=== PATIENT | female | born 1960 | race Caucasian/White ===

== ENCOUNTER 2018-09-08 10:57 | Emergency (ER) | payer MEDICAID ==
[2018-09-08] MEDS ORDERED: ONDANSETRON HCL INJ/PF 4 MG/2 ML SDV IV ONE ×2 (11:08→13:22)
--- NOTE | 2018-09-08 11:08 | ER Document Report ---
ED Medical Screen (RME) - General Chief Complaint: Nausea/Vomiting/Diarrhea Stated Complaint: VOMITING Time Seen by Provider: 09/08/18 11:03 Mode of Arrival: Ambulatory Information source: Patient Notes: Patient presents to the emergency department with complaints of abdominal cramping and vomiting. Patient reports her sister came over last night with a bottle of whiskey. She reports they drank the whiskey and she has been vomiting nonstop since last night. Patient is actively vomiting and gagging in triage. I have greeted and performed a rapid initial assessment of this patient. A comprehensive ED assessment and evaluation of the patient, analysis of test results and completion of the medical decision making process will be conducted by additional ED providers. TRAVEL OUTSIDE OF THE [place] IN LAST 30 DAYS: No - Related Data Allergies/Adverse Reactions: No Known Allergies Allergy (Verified 09/08/18 10:59) Past Medical History - Past Medical History Cardiac Medical History: Reports: Hx Hypertension Pulmonary Medical History: Reports: Hx Asthma, Hx Bronchitis - Asthmatic bronchitis, Hx COPD, Hx Pneumonia - 2008 hospitalized Renal/ Medical History: Reports: Hx Ovarian Cysts GI Medical History: Reports: Hx Gastroesophageal Reflux Disease Musculoskeltal Medical History: Reports Hx Musculoskeletal Trauma Traumatic Medical History: Reports: Hx Fractures - cheek bone and coccyx Past Surgical History: Reports: Hx Appendectomy, Hx Orthopedic Surgery - cheek bone reconstruction - Immunizations Immunizations up to date: Yes Hx Diphtheria, Pertussis, Tetanus Vaccination: Yes Physical Exam - Vital signs Vitals: Pulse Resp BP Pulse Ox 56 L 21 H 172/94 H 100 09/08/18 11:05 09/08/18 11:05 09/08/18 11:05 09/08/18 11:05 Course - Vital Signs Vital signs: Temp Pulse Resp BP Pulse Ox 56 L 21 H 172/94 H 100 09/08/18 11:05 09/08/18 11:05 09/08/18 11:05 09/08/18 11:05
[2018-09-08] MEDS ORDERED: NORMAL SALINE 1000 ML 1,000 ML IV ONE ×2 (11:09→13:22)
[2018-09-08 11:39] LABS: ABSOLUTE BASOPHILS # (AUTO) 0.1 10^3/uL (0.0-0.2); ABSOLUTE LYMPHOCYTES (AUTO) 1.9 10^3/uL (0.5-4.7); ABSOLUTE MONOCYTES (AUTO) 0.5 10^3/uL (0.1-1.4); ABSOLUTE NEUT (AUTO) 14.5 10^3/uL (1.7-8.2); BASOPHILS % (AUTO) 0.5 % (0-2); HEMATOCRIT 39.1 % (36.0-47.0); HEMOGLOBIN 13.4 g/dL (12.0-15.5); LYMPHOCYTES % (AUTO) 11.1 % (13-45); MEAN CORPUSCULAR HEMOGLOBIN 29.5 pg (27.0-33.4); MEAN CORPUSCULAR HGB CONC 34.2 g/dL (32.0-36.0); MEAN CORPUSCULAR VOLUME 86 fl (80-97); MONOCYTES % (AUTO) 2.8 % (3-13); PLATELET COUNT 351 10^3/uL (150-450); RED BLOOD COUNT 4.54 10^6/uL (3.72-5.28); RED CELL DISTRIBUTION WIDTH 13.3 % (11.5-14.0); SEGMENTED NEUTROPHILS % (AUTO) 85.6 % (42-78); TOTAL CELLS COUNTED % (AUTO) 100 %; WHITE BLOOD COUNT 16.9 10^3/uL (4.0-10.5)
[2018-09-08 12:17] LABS: ALANINE AMINOTRANSFERASE 30 U/L (9-52); ALBUMIN 4.6 g/dL (3.5-5.0); ALKALINE PHOSPHATASE 73 U/L (38-126); ANION GAP 12 (5-19); ASPARTATE AMINO TRANSFERASE 30 U/L (14-36); BILIRUBIN,DIRECT 0.2 mg/dL (0.0-0.4); BILIRUBIN,TOTAL 0.4 mg/dL (0.2-1.3); BLOOD UREA NITROGEN 18 mg/dL (7-20); CALCIUM 9.9 mg/dL (8.4-10.2); CARBON DIOXIDE 25 mmol/L (22-30); CHLORIDE 106 mmol/L (98-107); GLUCOSE 153 mg/dL (75-110); LIPASE 299.5 U/L (23-300); POTASSIUM 4.4 mmol/L (3.6-5.0); SODIUM 143.1 mmol/L (137-145); TOTAL PROTEIN 7.5 g/dL (6.3-8.2)
--- NOTE | 2018-09-08 13:23 | ER Document Report ---
ED General - General Chief Complaint: Nausea/Vomiting/Diarrhea Stated Complaint: VOMITING Time Seen by Provider: 09/08/18 11:03 Mode of Arrival: Ambulatory Cannot obtain history due to: Uncooperative Notes: 57 female in mild distress presents to the emergency department with complaints of abdominal cramping and vomiting. Patient reports her sister came over last night with a bottle of whiskey. She reports they drank the whiskey and she has been vomiting nonstop since last night. Patient is actively vomiting and gagging during the interview. She is unclear how much she drank. She is n auseated and said the triage did not help she says a "feel terrible", she complains of lightheadedness and abdominal cramping. She denies any dizziness, lightheadedness, headache, shortness of breath or chest pain TRAVEL OUTSIDE OF THE [place] IN LAST 30 DAYS: No - Related Data Allergies/Adverse Reactions: No Known Allergies Allergy (Verified 09/08/18 10:59) Past Medical History - General Information source: Patient - Social History Smoking Status: Current Some Day Smoker Drug Abuse: Marijuana Family History: Arthritis, CAD, Hyperlipidemia, Hypertension, Malignancy, Other - ASTHMA. denies: CVA, DM Patient has suicidal ideation: No Patient has homicidal ideation: No - Past Medical History Cardiac Medical History: Reports: Hx Hypertension Pulmonary Medical History: Reports: Hx Asthma, Hx Bronchitis - Asthmatic bronchitis, Hx COPD, Hx Pneumonia - 2009 hospitalized Renal/ Medical History: Reports: Hx Ovarian Cysts. Denies: Hx Peritoneal Dialysis GI Medical History: Reports: Hx Gastroesophageal Reflux Disease Musculoskeletal Medical History: Reports Hx Musculoskeletal Trauma Traumatic Medical History: Reports: Hx Fractures - cheek bone and coccyx Past Surgical History: Reports: Hx Appendectomy, Hx Orthopedic Surgery - cheek bone reconstruction - Immunizations Immunizations up to date: Yes Hx Diphtheria, Pertussis, Tetanus Vaccination: Yes Review of Systems - Review of Systems Constitutional: See HPI EENT: See HPI Cardiovascular: See HPI Respiratory: See HPI Gastrointestinal: See HPI Genitourinary: See HPI Female Genitourinary: No symptoms reported Musculoskeletal: No symptoms reported Skin: No symptoms reported Hematologic/Lymphatic: No symptoms reported Neurological/Psychological: No symptoms reported Physical Exam - Vital signs Vitals: Pulse Resp BP Pulse Ox 56 L 21 H 172/94 H 100 09/08/18 11:05 09/08/18 11:05 09/08/18 11:05 09/08/18 11:05 - Notes Notes: PHYSICAL EXAMINATION: Reviewed vital signs and charting by RN GENERAL: Alert, interacts well. Mild distress. HEAD: Normocephalic, atraumatic. EYES: Pupils equal and round. Extraocular movements intact. ENT: Oral mucosa moist, tongue midline. NECK: Full range of motion. Trachea midline. LUNGS: Clear to auscultation bilaterally, no wheezes, rales, or rhonchi. No respiratory distress. HEART: Regular rate and rhythm. No murmur ABDOMEN: soft, non-tender. Non-distended. Bowel sounds present. no McBurney's point tenderness, no Timmons sign. EXTREMITIES: Moves all 4 extremities spontaneously. No edema, No cyanosis. Normal distal neurovascular exam BACK: No CVAT NEUROLOGIC: Oriented and appropriate. Normal speech. PSYCH: Normal affect, normal mood. SKIN: Warm, dry, normal turgor. No rashes or lesions noted. Course - Re-evaluation Re-evalutation: 09/08/18 13:22 In mild distress, actively vomiting. We will give her another antiemetic. We will also give her another bag of normal saline. 09/08/18 14:34 Patient received second liter of normal saline and Zofran 4 mg IV approximately 20 minutes ago. She says she is "waiting for the antinausea medication to kick in". I will give her promethazine 50 mg IM 1 time as the Zofran does not appear to be working. Patient's labs all within normal ranges, she has a leukocytosis most likely secondary, is afebrile. At this time once patient is feeling better and her vomiting subsides she will be safe to go home. 09/08/18 15:36 Patient received promethazine and endorses feeling better. She says that her stomach is hurting her but it is from retching she states. At this time discharge home. I will send her with an ER dose pack of Zofran and write her prescription for Phenergan as the Phenergan seems to work better for her. - Vital Signs Vital signs: Temp Pulse Resp BP Pulse Ox 56 L 21 H 172/94 H 100 09/08/18 11:05 09/08/18 11:05 09/08/18 11:05 04/09/19 11:05 - Laboratory Result Diagrams: 09/08/18 11:22 09/08/18 11:22 Laboratory results interpreted by me: 09/08/18 09/08/18 11:22 11:22 WBC 16.9 H Seg Neutrophils % 85.6 H Lymphocytes % 11.1 L Monocytes % 2.8 L Absolute Neutrophils 14.5 H Glucose 153 H Discharge - Discharge Clinical Impression: Nausea & vomiting Qualifiers: Vomiting type: unspecified Vomiting Intractability: intractable Qualified Code(s): R11.2 - Nausea with vomiting, unspecified Condition: Good Disposition: HOME, SELF-CARE Additional Instructions: You have been seen in the Emergency Department (ED) today for nausea and vomiting. Your work up today was reassuring and you had no lab abnormalities related to your symptoms. You have been prescribed Zofran and Phenergan; please use as prescribed as needed for your nausea. Follow up with your doctor as soon as possible regarding today's emergent visit and your symptoms of nausea. Return to the Emergency Department (ED) if you develop abdominal pain, bloody vomiting, bloody diarrhea, if you are unable to tolerate fluids due to vomiting, or if you develop other symptoms that concern you.
[2018-09-08] MEDS ORDERED: PROMETHAZINE HCL INJ 50 MG/1 ML VIAL IM ONE (14:33)
[2018-09-08] MEDS ORDERED: ONDANSETRON ODT 4 MG TAB (6 TAB/ER DISP) PO PRN (16:13)
[2018-09-08 16:21] VITALS: BP 158/85
== END 2018-09-08 16:20 | disposition home or self-care (01) ==
LOC: ER 10:57
DX: R11.2 Nausea with vomiting, unspecified (principal); R19.7 Diarrhea, unspecified; F17.200 Nicotine dependence, unspecified, uncomplicated; I10 Essential (primary) hypertension
CPT/HCPCS: 96376; 99284; 96372; 96361; 96374; 36415; 83690; 85025; 80053; J2550; J2405; J7030

== ENCOUNTER 2019-02-11 08:08 | Emergency (ER) | payer MEDICAID ==
[2019-02-11 09:51] LABS: ABSOLUTE BASOPHILS # (AUTO) 0.1 10^3/uL (0.0-0.2); ABSOLUTE EOSINOPHILS # (AUTO) 0.1 10^3/uL (0.0-0.6); ABSOLUTE LYMPHOCYTES (AUTO) 3.1 10^3/uL (0.5-4.7); ABSOLUTE MONOCYTES (AUTO) 0.7 10^3/uL (0.1-1.4); ABSOLUTE NEUT (AUTO) 5.3 10^3/uL (1.7-8.2); EOSINOPHILS % (AUTO) 1.2 % (0-6); HEMATOCRIT 36.5 % (36.0-47.0); HEMOGLOBIN 12.4 g/dL (12.0-15.5); LYMPHOCYTES % (AUTO) 33.3 % (13-45); MEAN CORPUSCULAR HEMOGLOBIN 29.1 pg (27.0-33.4); MEAN CORPUSCULAR VOLUME 85 fl (80-97); MONOCYTES % (AUTO) 7.4 % (3-13); PLATELET COUNT 269 10^3/uL (150-450); RED BLOOD COUNT 4.27 10^6/uL (3.72-5.28); RED CELL DISTRIBUTION WIDTH 13.3 % (11.5-14.0); SEGMENTED NEUTROPHILS % (AUTO) 57.1 % (42-78); TOTAL CELLS COUNTED % (AUTO) 100 %; WHITE BLOOD COUNT 9.3 10^3/uL (4.0-10.5)
[2019-02-11 09:53] LABS: APPEARANCE,URINE CLEAR; BILIRUBIN,URINE NEGATIVE (NEGATIVE); COLOR,URINE YELLOW; GLUCOSE, URINE NEGATIVE (NEGATIVE); KETONES,URINE TRACE mg/dL (NEGATIVE); LEUKOCYTE ESTERASE,URINE TRACE (NEGATIVE); NITRITE,URINE NEGATIVE (NEGATIVE); PROTEIN,URINE NEGATIVE (NEGATIVE); URINE SPECIFIC GRAVITY 1.023; UROBILINOGEN,URINE NEGATIVE mg/dL (<2.0)
[2019-02-11 10:01] LABS: INTERNATIONAL RATION (INR) 0.91; PROTHROMBIN TIME 12.2 SEC (11.4-15.4)
[2019-02-11 10:06] LABS: ADD MANUAL MICROSCOPIC YES
[2019-02-11 10:07] LABS: ANION GAP 10 (5-19); BLOOD UREA NITROGEN 20 mg/dL (7-20); CALCIUM 9.5 mg/dL (8.4-10.2); CARBON DIOXIDE 28 mmol/L (22-30); CHLORIDE 105 mmol/L (98-107); POTASSIUM 3.7 mmol/L (3.6-5.0)
[2019-02-11 10:09] LABS: GLUCOSE 46 mg/dL (75-110)
[2019-02-11 10:34] LABS: BACTERIA,URINE 1+ /HPF; WBC,URINE 0-1 /HPF
--- NOTE | 2019-02-11 10:47 | ER Document Report ---
Entered by AYSE JARA SCRIBE 02/11/19 1007 Acting as scribe for:DIVYA LOPEZ MD ED Extremity Problem, Lower - General Chief Complaint: Leg Pain Stated Complaint: LEG PAIN Time Seen by Provider: 02/11/19 09:50 Primary Care Provider: MUSHTAQ RUDD FNP [Primary Care Provider] - Follow up as needed Notes: Patient is a 58-year-old female who presents to the emergency department today with complaints of "bruising" to her lower extremities which "all appeared within the last 12 hours". Patient also mentions an area on her right lower extremity where a mole was recently removed. Patient states it was biopsied and it was "all clear" however this area turned black overnight. Patient states she "has a fear of blood clots". Patient is on Plavix. TRAVEL OUTSIDE OF THE [place] IN LAST 30 DAYS: No - Related Data Allergies/Adverse Reactions: No Known Allergies Allergy (Verified 02/11/19 08:11) Past Medical History - General Information source: Patient - Social History Smoking Status: Former Smoker - quit around the 1999 Cigarette use (# per day): No Frequency of alcohol use: None Lives with: Family Family History: Arthritis, CAD, Hyperlipidemia, Hypertension, Malignancy, Other - ASTHMA - Past Medical History Cardiac Medical History: Reports: Hx Hypertension Pulmonary Medical History: Reports: Hx Asthma, Hx Bronchitis - Asthmatic bro nchitis, Hx COPD, Hx Pneumonia - 2008 hospitalized Renal/ Medical History: Reports: Hx Ovarian Cysts GI Medical History: Reports: Hx Gastroesophageal Reflux Disease Musculoskeletal Medical History: Reports Hx Musculoskeletal Trauma Traumatic Medical History: Reports: Hx Fractures - cheek bone and coccyx Past Surgical History: Reports: Hx Appendectomy, Hx Orthopedic Surgery - cheek bone reconstruction - Immunizations Immunizations up to date: Yes Hx Diphtheria, Pertussis, Tetanus Vaccination: Yes Review of Systems - Review of Systems Constitutional: No symptoms reported EENT: No symptoms reported Cardiovascular: No symptoms reported Respiratory: No symptoms reported Gastrointestinal: No symptoms reported Genitourinary: No symptoms reported Female Genitourinary: No symptoms reported Musculoskeletal: No symptoms reported Skin: No symptoms reported Hematologic/Lymphatic: See HPI, Easy bruising Neurological/Psychological: No symptoms reported -: Yes All other systems reviewed and negative Physical Exam - Vital signs Vitals: Temp Pulse Resp BP Pulse Ox 97.7 F 76 20 131/80 H 98 09/12/19 08:12 02/11/19 08:12 02/11/19 08:12 02/11/19 08:12 02/11/19 08:12 - Notes Notes: Physical Exam: General: Alert, appears well. HEENT: Normocephalic. Atraumatic. PERRL. Extraocular movements intact. Oropharynx clear. Neck: Supple. Non-tender. Respiratory: No respiratory distress. Clear and equal breath sounds bilaterally. Cardiovascular: Regular rate and rhythm. Abdominal: Normal Inspection. Non-tender. No distension. Normal Bowel Sounds. Back: No gross abnormalities. Extremities: Moves all four extremities. Upper extremities: Normal inspection. Normal ROM. Lower extremities: Normal inspection. No edema. Normal ROM. No calf swelling. Calves are symmetric and soft. Neurological: Normal cognition. AAOx4. Normal speech. Psychological: Normal affect. Normal Mood. Skin: Scattered bruises ranging from 1-5 mm. The larger bruises a firm nodule centrally consistent with blood clotting, these areas are tender with palpation. Right medial leg has a 1cm area that is dark brown to black in color with scal ing. There is a surrounding halo with red streaking from the area. Patient reports this is the area where she had a mole remove. Course - Vital Signs Vital signs: Temp Pulse Resp BP Pulse Ox 97.7 F 76 20 131/80 H 98 02/11/19 08:12 02/11/19 08:12 02/11/19 08:12 02/11/19 08:12 02/11/19 08:12 - Laboratory Result Diagrams: 02/11/19 09:27 02/11/19 09:27 Laboratory results interpreted by me: 02/11/19 02/11/19 09:27 09:27 Glucose 46 L Urine Ketones TRACE H Urine Blood SMALL H Ur Leukocyte Esterase TRACE H Discharge - Discharge Clinical Impression: Infected lesion of skin, Hypoglycemia associated with type 2 diabetes mellitus Superficial bruising of lower leg Qualifiers: Encounter type: initial encounter Laterality: unspecified laterality Qualified Code(s): S80.10XA - Contusion of unspecified lower leg, initial encounter Condition: Stable Disposition: HOME, SELF-CARE Additional Instructions: The bruising you noticed on your legs is probably related to minor trauma and being on Plavix. The lesion on the right leg where your biopsy was done previously, looks like it may be becoming infected. I am concerned about the appearance of this area and think it needs further evaluation and possibly repeat biopsy. Your blood sugar is quite low today, you need to be sure you do not miss any meals. Take the medication as prescribed. Elevate your feet as much as possible. Be sure not to miss any meals. Follow-up with your primary care provider for referral to a state comptroller, a general surgeon, or a plastic surgeon to evaluate the biopsy site on your leg. RETURN TO THE EMERGENCY ROOM IF ANY NEW OR WORSENING SYMPTOMS. Prescriptions: Cephalexin Monohydrate [Keflex 500 mg Capsule] 500 mg PO QID #28 capsule Referrals: MUSHTAQ RUDD FNP [Primary Care Provider] - Follow up as needed Scribe Attestation: 02/11/19 10:53 I personally performed the services described in the documentation, reviewed and edited the documentation which was dictated to the scribe in my presence, and it accurately records my words and actions. I personally performed the services described in the documentation, reviewed and edited the documentation which was dictated to the scribe in my presence, and it accurately records my words and actions.
[2019-02-11] MEDS ORDERED: CEPHALEXIN 500 MG CAPSULE PO ONE (10:51)
[2019-02-11 11:51] VITALS: BP 140/92
== END 2019-02-11 11:52 | disposition home or self-care (01) ==
LOC: ER 08:08
DX: S80.10XA Contusion of unspecified lower leg, initial encounter (principal); E11.649 Type 2 diabetes mellitus with hypoglycemia without coma; L98.8 Other specified disorders of the skin and subcutaneous tissue; X58.XXXA Exposure to other specified factors, initial encounter; M79.605 Pain in left leg; M79.604 Pain in right leg; I10 Essential (primary) hypertension; Z79.01 Long term (current) use of anticoagulants
CPT/HCPCS: 36415; 80048; 81001; 82962; 84484; 85025; 85379; 85610

== ENCOUNTER 2019-11-14 19:08 | Emergency (ER) | payer MEDICAID ==
--- NOTE | 2019-11-14 19:53 | ER Document Report ---
ED Medical Screen (RME) - General Chief Complaint: Blurred Vision Stated Complaint: VISION CHANGES Time Seen by Provider: 11/14/19 19:50 Primary Care Provider: MUSHTAQ RUDD FNP [Primary Care Provider] - Follow up as needed Mode of Arrival: Medic Information source: Patient Notes: 58-year-old female presented to ED for blurred vision at 6 PM tonight. She has had previous strokes with her symptoms being confusion and blurred vision. She states she has had both of these today. Patient is alert oriented answering questions appropriately but she still does have some short-term memory. She does not have any palmar drift. She does not have any facial droop. I have greeted and performed a rapid initial assessment of this patient. A comprehensive ED assessment and evaluation of the patient, analysis of test results and completion of medical decision making process will be conducted by an additional ED providers. TRAVEL OUTSIDE OF THE [place] IN LAST 30 DAYS: No - Related Data Allergies/Adverse Reactions: No Known Allergies Allergy (Verified 02/11/19 08:11) Past Medical History - Past Medical History Cardiac Medical History: Reports: Hx Hypertension Pulmonary Medical History: Reports: Hx Asthma, Hx Bronchitis - Asthmatic bronchitis, Hx COPD, Hx Pneumonia - 2008 hospitalized Renal/ Medical History: Reports: Hx Ovarian Cysts. Denies: Hx Peritoneal Dialysis GI Medical History: Reports: Hx Gastroesophageal Reflux Disease Musculoskeltal Medical History: Reports Hx Musculoskeletal Trauma Traumatic Medical History: Reports: Hx Fractures - cheek bone and coccyx Past Surgical History: Reports: Hx Appendectomy, Hx Orthopedic Surgery - cheek bone reconstruction - Immunizations Immunizations up to date: Yes Hx Diphtheria, Pertussis, Tetanus Vaccination: Yes Physical Exam - Vital signs Vitals: Temp Pulse Resp BP Pulse Ox 98.6 F 64 16 146/89 H 96 11/14/19 19:35 11/14/19 19:35 11/14/19 19:35 11/14/19 19:35 11/14/19 19:35 Course - Vital Signs Vital signs: Temp Pulse Resp BP Pulse Ox 98.6 F 64 16 146/89 H 96 11/14/19 19:35 11/14/19 19:35 11/14/19 19:35 11/14/19 19:35 11/14/19 19:35 Doctor's Discharge - Discharge Referrals: TOBIN,MUSHTAQ, GEAR TOOTH 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
[2019-11-14 20:38] LABS: INTERNATIONAL RATION (INR) 0.93; PARTIAL THROMBOPLASTIN TIME 29.6 SEC (23.5-35.8); PROTHROMBIN TIME 12.5 SEC (11.4-15.4)
[2019-11-14 20:40] LABS: ABSOLUTE BASOPHILS # (AUTO) 0.1 10^3/uL (0.0-0.2); ABSOLUTE EOSINOPHILS # (AUTO) 0.1 10^3/uL (0.0-0.6); ABSOLUTE LYMPHOCYTES (AUTO) 3.3 10^3/uL (0.5-4.7); ABSOLUTE MONOCYTES (AUTO) 0.8 10^3/uL (0.1-1.4); BASOPHILS % (AUTO) 0.8 % (0-2); EOSINOPHILS % (AUTO) 1.1 % (0-6); HEMATOCRIT 37.7 % (36.0-47.0); HEMOGLOBIN 12.6 g/dL (12.0-15.5); LYMPHOCYTES % (AUTO) 29.1 % (13-45); MEAN CORPUSCULAR HGB CONC 33.4 g/dL (32.0-36.0); MEAN CORPUSCULAR VOLUME 87 fl (80-97); MONOCYTES % (AUTO) 7.1 % (3-13); PLATELET COUNT 245 10^3/uL (150-450); RED BLOOD COUNT 4.34 10^6/uL (3.72-5.28); RED CELL DISTRIBUTION WIDTH 13.5 % (11.5-14.0); SEGMENTED NEUTROPHILS % (AUTO) 61.9 % (42-78); TOTAL CELLS COUNTED % (AUTO) 100 %; WHITE BLOOD COUNT 11.4 10^3/uL (4.0-10.5)
--- NOTE | 2019-11-14 20:51 | RADIOLOGY REPORT (SQ) ---
EXAM DESCRIPTION: X-ray, single view of the chest CLINICAL HISTORY: 58 years Female, Stroke protocol COMPARISON: Two views of the chest November 07, 2015 FINDINGS: Lungs: Minimal linear scarring or atelectasis is noted in the left lung base. No focal consolidation. No pneumothorax or pleural effusion. Mediastinum: Heart size is within normal limits. Mediastinum appears normal. EKG tabs project over the mediastinum bilaterally. An implanted cardiac monitoring device projects over the left heart. Bones: Osseous structures are normal. IMPRESSION: Minimal linear scarring or atelectasis in the left lung base.
--- NOTE | 2019-11-14 20:54 | RADIOLOGY REPORT (SQ) ---
CT HEAD WITHOUT IV CONTRAST CLINICAL STATEMENT: Stroke protocol TECHNIQUE: Axial CT images from skull base to vertex without IV contrast. This exam was performed according to our departmental dose optimization program, and includes the following measures where applicable: automated exposure control, adjustment of the mAs and/or kVp according to patient size and/or exam, and an iterative reconstruction algorithm. COMPARISON: None. FINDINGS: There is no acute intracranial hemorrhage, mass, mass effect or abnormal extra-axial fluid collection. No evidence of an acute territorial infarct is identified. The ventricles are normal. Calvaria: Postsurgical change is seen along the left orbital rim consistent with previous fracture fixation. No acute process. Paranasal sinuses: Visualized portions of the orbits and paranasal sinuses are unremarkable. skull base: Unremarkable IMPRESSION: No acute intracranial abnormality.
[2019-11-14 21:06] LABS: ALBUMIN 4.2 g/dL (3.5-5.0); ALKALINE PHOSPHATASE 61 U/L (38-126); ANION GAP 8 (5-19); ASPARTATE AMINO TRANSFERASE 30 U/L (14-36); BILIRUBIN,TOTAL 0.4 mg/dL (0.2-1.3); BLOOD UREA NITROGEN 15 mg/dL (7-20); CARBON DIOXIDE 25 mmol/L (22-30); CHLORIDE 106 mmol/L (98-107); CREATINE KINASE 46 U/L (30-135); GLUCOSE 96 mg/dL (75-110); TOTAL PROTEIN 6.9 g/dL (6.3-8.2)
[2019-11-14 21:16] LABS: CREATINE KINASE MB 0.41 ng/mL (<4.55)
[2019-11-14 21:24] LABS: TROPONIN I < 0.012 ng/mL
--- NOTE | 2019-11-14 22:42 | EKG REPORT ---
SEVERITY:- NORMAL ECG - SINUS RHYTHM : Confirmed by: Pema Musa MD 14-Nov-2019 22:41:40
--- NOTE | 2019-11-14 23:24 | ER Document Report ---
ED NIH Stroke Scale - NIH Stroke Scale *: 1. NIH scale should be completed with appropriate accompanying assessment tools. *: 2. The NIH should reflect what the patient is capable of doing and should not be coached by the clinician. 1a. Level of Consciousness: 0=Alert;keenly responsive -: 1=Drowsy -: 2=Obtunded -: 3=Coma/unresponsive or reflex to noxious stimuli. 1a. Responses: 0 1b. Orientation Questions: a. What month is it? -: b. How old are you? -: 0=Answers both questions correctly. -: 1=Answers one question correctly or patient is intubated or has orotracheal trauma. -: 2=Answers neither question correctly. 1b. Responses: 0 1c. Response to commands: a. Open and close eyes? -: b. Gastrointestinal Technician and release hand? -: Credit is given despite weakness. Demonstration of task is permitted. Substitute command if hands cannot be used. -: 0=Performs both tasks correctly -: 1=Performs one task correctly -: 2=Performs neither task correctly 2. Gaze: Establish eye contact and instruct patient to "Follow my finger" -: 0=Normal -: 1=Partial gaze palsy. Gaze is abnormal in one or both eyes, but where forced deviation or total gaze paresis is not present. -: 2=Forced deviation or total gaze paresis. 2. Responses: 0 3. Visual [place]: Sees fingers in all four quadrants. -: 0=No visual loss. -: 1=Partial hemianopsia. -: 2=Complete hemianopsia. -: 3=Bilateral hemianopsia (including Cortical blindness) 3. Responses: 1 4. Facial Movement: Instruct patient to: -: a. Show me your teeth -: b. Raise your eyebrows -: c. Close your eyes -: d. Smile -: 0=Normal symmetrical movement -: 1=Minor paralysis (flattened nasolabial fold, asymmetry on smiling). -: 2=Partial paralysis (total or near total paralysis of lower face). -: 3=Complete paralysis of upper and lower face 4. Responses: 0 5. Motor functions (left arm): Alternate sides and extend each arm with palms down (90 degrees if sitting or 45 degrees for supine). -: 0=No drift;limb holds for full 10 seconds. -: 1=Drift; limb holds but drifts down before full 10 seconds, but does not hit bed. -: 2=Some effort against gravity; limb cannot get to or maintain position. -: 3=No effort against gravity; limb falls. -: 4=No movement. -: UN=Amputation, joint fusion, explain in comments. 5. Responses (left arm): 0 5. Motor Functions (right arm): Alternate sides and extend each arm with palms down (90 degrees if sitting or 45 degrees for supine). -: 0=No drift;limb holds for full 10 seconds. -: 1=Drift; limb holds but drifts down before full 10 seconds, but does not hit bed. -: 2=Some effort against gravity; limb cannot get to or maintain position. -: 3=No effort against gravity; limb falls. -: 4=No movement. -: UN=Amputation, joint fusion, explain in comments. 5. Responses (right arm): 0 6. Motor Functions (left leg): With patient lying supine, alternate sides and extend each leg (30 degrees always while supine). -: 0=No drift, leg holds position for full 5 seconds -: 1=Drift; leg falls before full 5 seconds but does not hit bed. -: 2=Some effort against gravity, leg falls to bed but some effort against gravity. -: 3=No effort against gravity, leg falls to bed immediately. -: 4=No movement. -: UN=Amputation, joint fusion; explain in comments. 6. Responses (left leg): 0 6. Motor Functions (right leg): With patient lying supine, alternate sides and extend each leg (30 degrees always while supine). -: 0=No drift, leg holds position for full 5 seconds -: 1=Drift; leg falls before full 5 seconds but does not hit bed. -: 2=Some effort against gravity, leg falls to bed but some effort against gravity. -: 3=No effort against gravity, leg falls to bed immediately. -: 4=No movement. -: UN=Amputation, joint fusion; explain in comments. 6. Responses (right leg): 0 7. Limb Ataxia: With eyes open instruct patient to: -: a. "Touch your finger to your nose". -: b. "Touch your heel to your rodriguez" -: 0=Absent -: 1=Present in one limb. -: 2=Present in two limbs. -: UN=Amputation or joint fusion; explain in comments. 7. Responses: 0 8. Sensory: Test sensation using pinprick or noxious stimuli. Test as many body parts as possible. -: 0=Normal;no sensory loss -: 1=Mile to moderate sensory loss (patient feels pin prick but is less sharp on affected side). -: 2=Severe or total sensory loss. 8. Responses: 0 9. Best Language: Instruct patient to: -: a. "Describe what you see in this picture." -: b. "Name the items in this picture." -: c. "Read these sentences." -: 0=No aphasia, normal -: 1=Mild to moderate aphasia. -: 2=Severe aphasia -: 3=Mute, global aphasia, no usable speech or auditory comprehension. 9. Responses: 0 10. Articulation, Dysarthia: Instruct patient to: -: "Read these words" or "Repeat these words" -: 0=Normal -: 1=Mild to moderate; patient may slur some words but can be understood without difficulty. -: 2=Severe; patients speech so slurred as to be unintelligible in the absence of dysphasia. -: UN=Intubated or other physical barrier, explain in comments. 10. Responses: 0 11. Extinction or inattention: 0=No abnormality -: 1= Visual, tactile, auditory, spatial, or personal inattention or extinction to bilateral simulation in one or the sensory modalities. -: 2=Profound emmanuel-inattention or emmanuel-inattention to more than one modality; does not recognize own hand. 11. Responses: 0 Total Score: 1
--- NOTE | 2019-11-14 23:30 | ER Document Report ---
ED General - General Chief Complaint: Blurred Vision Stated Complaint: VISION CHANGES Time Seen by Provider: 11/14/19 19:50 Primary Care Provider: MUSHTAQ RUDD FNP [NO LOCAL MD] - Follow up as needed Mode of Arrival: Medic TRAVEL OUTSIDE OF THE [place] IN LAST 30 DAYS: No - HPI Notes: Patient is a 58-year-old female with a history of multiple CVAs in the past, current loop recorder placed, who presents to the emergency department for evaluation of some vision changes, vision loss, concerning to her for CVA. She states that she has had symptoms like this in the past. Patient states initially she was driving, started having visual changes on the left side. She states that it looked like she was seeing reflections through a car window, but it was when she was not looking through the window. She got home, contacted her family about going to the hospital. They recommended she called 911. She went to the bathroom mirror, looked at her face, states the left upper half of her face was not visible to her, so she presents to the emergency department for further evaluation. She denies any pain. She is anticoagulated, currently taking Xarelto, states she has been taking this medication as prescribed. Throughout the course of her stay here in the emergency department, the patient's vision has improved, she still states she sees "waviness" but she does not have a complete vision loss as she had earlier. - Related Data Allergies/Adverse Reactions: No Known Allergies Allergy (Verified 02/11/19 08:11) Home Medications: Atorvastatin 40 mg daily, Neurontin 300 mg 3 times daily, lisinopril 10 mg daily as needed for high blood pressure, vitamin D 5000 units daily, Viibryd 40 mg daily, mirtazapine 30 mg daily, albuterol inhaler as needed, Stiolto Respimat inhaler 2.5 mics/2.5 daily, tizanidine 4 mg as needed, trazodone 150 mg at bedtime, Xarelto 20 mg daily, alendronate 70 mg weekly Past Medical History - General Information source: Patient - Social History Smoking Status: Former Smoker Frequency of alcohol use: None Drug Abuse: None Family History: Arthritis, CAD, Hyperlipidemia, Hypertension, Malignancy, Other - ASTHMA Patient has homicidal ideation: No - Past Medical History Cardiac Medical History: Reports: Hx Hypertension Pulmonary Medical History: Reports: Hx Asthma, Hx Bronchitis - Asthmatic bronchitis, Hx COPD, Hx Pneumonia - 2009 hospitalized Neurological Medical History: Reports: Hx Cerebrovascular Accident Renal/ Medical History: Reports: Hx Ovarian Cysts. Denies: Hx Peritoneal Dialysis GI Medical History: Reports: Hx Gastroesophageal Reflux Disease Musculoskeletal Medical History: Reports Hx Musculoskeletal Trauma Traumatic Medical History: Reports: Hx Fractures - cheek bone and coccyx Past Surgical History: Reports: Hx Appendectomy, Hx Orthopedic Surgery - cheek bone reconstruction - Immunizations Immunizations up to date: Yes Hx Diphtheria, Pertussis, Tetanus Vaccination: Yes Review of Systems - Review of Systems EENT: See HPI Neurological/Psychological: See HPI -: Yes All other systems reviewed and negative Physical Exam - Vital signs Vitals: Temp Pulse Resp BP Pulse Ox 98.6 F 64 16 146/89 H 96 11/14/19 19:35 11/14/19 19:35 11/14/19 19:35 11/14/19 19:35 11/14/19 19:35 - Notes Notes: Vital signs reviewed, please refer to chart. Head is normocephalic, atraumatic. Pupils equal round, reactive to light. Neck is supple without meningismus. Heart is regular rate and rhythm. Lungs are clear to auscultation bilaterally. Abdomen is soft, nontender, normoactive bowel sounds throughout. Extremities without cyanosis, clubbing. Posterior calves are nontender. Peripheral pulses are equal. Skin is warm and dry. Patient is awake, alert, oriented x3. Cranial nerve evaluation yields a mild left-sided superior partial hemianopsia, and mildly diminished sensation to light touch on the left side of the face. Per patient the left facial discrepancy is not new. Strength is plus 5 out of 5 bilateral upper and lower extremities. Sensation is intact. Reflexes symmetrical. Intact [id number], rapid alternating movements, [id number]. Course - Re-evaluation Re-evalutation: 11/14/19 23:31 Patient presents to the emergency department for evaluation of visual changes. She was brought back to a room. She was not noted as an official stroke alert. I went and evaluated the patient, upon initial evaluation was concerned immediately about the possibility of an acute CVA. She is currently outside of the TPA window, but also TPA is contraindicated in this patient already on Xarelto, who only has an NIH of 1. Currently her vitals are well controlled, with a blood pressure of 117/83. Her highest blood pressure was a systolic in the 140s upon arrival. She is in sinus mechanism on the monitor, as well as in the EKG. I have put out a consultation to neurology at [facility], patient sees Dr. Puckett there chronically. She is stable at this time, we will continue to monitor. 11/14/19 23:51 I spoke with Susan Mims, on-call for neurology at [facility]. We discussed the fact that she does continue to have deficits, although mild, I do not have MRI available, they do not have a clear reason for these strokes, and she is anticoagulated. She believes the patient would be best served being transferred to a stroke center, and I agree. Awaiting medicine call back for acceptance of transfer. 11/15/19 00:[address] Rizvi, internal medicine physician at [facility]. He very graciously accepted this transfer. He does note, as is the transfer center, that the facility is on regional diversion, and it may be up to 24 hours before a bed is available. Will write regular medications for patient, she is currently stable. 11/15/19 01:32 Patient complained to nursing of a headache. She does get these types of headach. I ordered morphine, Tylenol, and lisinopril, as the patient states she had not had her lisinopril today. We will order regular medications the patient will likely be here awaiting a bed for some time. - Vital Signs Vital signs: Temp Pulse Resp BP Pulse Ox 98.1 F 66 16 142/83 H 97 11/15/19 01:30 11/14/19 21:00 11/15/19 01:25 11/15/19 01:25 11/15/19 01:25 - Laboratory Result Diagrams: 11/14/19 20:15 11/14/19 20:15 Laboratory results interpreted by me: 11/14/19 20:15 WBC 11.4 H - Diagnostic Test Radiology reviewed: Reports reviewed Radiology results interpreted by me: 11/14/19 23:32 Chest X-Ray 11/14/19 19:50 IMPRESSION: Minimal linear scarring or atelectasis in the left lung base. Head CT 11/14/19 19:50 IMPRESSION: No acute intracranial abnormality. - EKG Interpretation by Me Additional EKG results interpreted by me: 11/14/19 23:33 Sinus mechanism with a rate of 62 bpm. Normal axis and intervals. No acute ST changes concerning for ischemia or infarction. Discharge - Discharge Clinical Impression: Acute CVA (cerebrovascular accident) Condition: Stable Disposition: [facility] Admitting Provider: Dr. Rizvi Referrals: MUSHTAQ RUDD FNP [NO LOCAL MD] - Follow up as needed
[2019-11-15] MEDS ORDERED: LISINOPRIL 10 MG TABLET PO ONE (01:32)
[2019-11-15] MEDS ORDERED: MORPHINE SULFATE 10 MG/ML INJ IV ONE (01:32)
[2019-11-15] MEDS ORDERED: ACETAMINOPHEN 325 MG TABLET PO ONE (01:32)
[2019-11-15] MEDS ORDERED: MIRTAZAPINE 15 MG TABLET PO SCH (01:45)
[2019-11-15] MEDS ORDERED: RIVAROXABAN 10 MG TABLET PO SCH (01:45)
[2019-11-15] MEDS ORDERED: GABAPENTIN 300 MG CAPSULE PO SCH (01:45)
[2019-11-15] MEDS ORDERED: ATORVASTATIN CALCIUM 40 MG TABLET PO SCH (01:45)
[2019-11-15] MEDS ORDERED: TRAZODONE HCL 50 MG TABLET PO SCH (02:00)
[2019-11-15 04:26] VITALS: BP 114/71
--- NOTE | 2019-11-15 04:35 | ER Document Report ---
Doctor's Note Notes: 11/15/19 04:34 Transport has arrived to take patient to [facility]. This MD went to the bedside and assessed the patient prior to transport. Patient is returning from the bathroom ambulating without difficulty and is in no acute distress. Patient appears stable for transfer.
[2019-11-15] MEDS ORDERED: LISINOPRIL 10 MG TABLET PO SCH (10:00)
== END 2019-11-15 04:45 | disposition short-term general hospital (02) ==
LOC: ER 19:08
DX: I63.9 Cerebral infarction, unspecified (principal); H53.8 Other visual disturbances; R29.701 NIHSS score 1; I10 Essential (primary) hypertension; R51 Headache; J44.9 Chronic obstructive pulmonary disease, unspecified; Z79.01 Long term (current) use of anticoagulants; Z79.899 Other long term (current) drug therapy; Z87.891 Personal history of nicotine dependence
CPT/HCPCS: 93005; 99285; 96374; 36415; 82553; 82550; 85025; 85610; 85730; 80053; 84484; 71045; 70450; 93010; J3490 ×6; J2270